=== PATIENT | male | born 1955 | race Caucasian/White ===

== ENCOUNTER 2018-03-21 07:57 | Inpatient (IN) | payer OTHER ==
[2018-03-21] MEDS ORDERED: SODIUM CHLORIDE 0.9% 1,000 ML IV STA ×2 (08:28→11:42)
[2018-03-21] MEDS ORDERED: METOPROLOL TARTRATE 5 MG/5 ML VIAL IVP STA (08:28)
--- NOTE | 2018-03-21 08:31 | ED ---
Arrhythmia/Palpitations HPI - General Chief Complaint: Arrhythmia/Palpitations Stated Complaint: high heart rate Time Seen by Provider: 03/21/18 08:07 Source: patient, RN notes reviewed Mode of arrival: ambulatory Limitations: no limitations - History of Present Illness Initial Comments: This is a [id number] male who states he was sent over by his information broker for evaluation. He has history of hypertension. He had a stress test last week. He states he had a elevated heart rate for about a month now. He denies any chest pain shortness breath fevers chills sweats or other symptoms at this time. He states he just does not feel like his usual self. He has no prior history of irregular heartbeat or heart attack he doesn't the family history of heart disease. He denies any thyroid disease. No weight loss weight and recently no heat or cold intolerance. - Related Data Home Medications Medication Instructions Recorded Confirmed Albuterol Sulfate [Proair Hfa] 2 puff INHALATION RT-Q4H PRN 03/21/18 03/21/18 Amoxic-Pot Clav 875-125Mg 1 tab PO BID 03/21/18 03/21/18 [Augmentin 875-125] Apixaban [Eliquis] 5 mg PO BID 03/21/18 03/21/18 Budesonide/Formoterol Fumarate 2 puff INHALATION RT-BID 03/21/18 03/21/18 [Symbicort 80-4.5 Mcg Inhaler] Cetirizine HCl [Zyrtec] 10 mg PO DAILY 03/21/18 03/21/18 Fluticasone Nasal [place] [Flonase 1 spray EA NOSTRIL DAILY 03/21/18 03/21/18 Nasal [place]] Metoprolol Succinate (ER) [Toprol 100 mg PO DAILY 03/21/18 03/21/18 Xl] amLODIPine [Norvasc] 10 mg PO DAILY 03/21/18 03/21/18 Allergies Allergy/AdvReac Type Severity Reaction Status Date / Time No Known Allergies Allergy Verified 03/21/18 10:49 Review of Systems ROS Statement: Those systems with pertinent positive or pertinent negative responses have been documented in the HPI. ROS Other: All systems not noted in ROS Statement are negative. Past Medical History Past Medical History: Hypertension History of Any Multi-Drug Resistant Organisms: None Reported Past Surgical History: Appendectomy Past Psychological History: No Psychological Hx Reported Smoking Status: Current every day smoker Past Alcohol Use History: Rare Past Drug Use History: None Reported General Exam - General Exam Comments Initial Comments: This is a well-developed well-nourished awake alert oriented times 3 male Limitations: no limitations General appearance: alert, in no apparent distress Head exam: Present: atraumatic, normocephalic, normal inspection Eye exam: Present: normal appearance, PERRL, EOMI. Absent: scleral icterus, conjunctival injection, periorbital swelling ENT exam: Present: normal exam, mucous membranes moist Neck exam: Present: normal inspection, full ROM, other (No stridor JVD or bruits ). Absent: tenderness, meningismus, lymphadenopathy Respiratory exam: Present: normal lung sounds bilaterally. Absent: respiratory distress, wheezes, rales, rhonchi, stridor Cardiovascular Exam: Present: normal rhythm, tachycardia, normal heart sounds. Absent: systolic murmur, diastolic murmur, rubs, gallop, clicks GI/Abdominal exam: Present: soft, normal bowel sounds. Absent: distended, tenderness, guarding, rebound, rigid Extremities exam: Present: normal inspection, full ROM, normal capillary refill. Absent: tenderness, pedal edema, joint swelling, calf tenderness Back exam: Present: normal inspection Neurological exam: Present: alert, oriented X3, CN II-XII intact Psychiatric exam: Present: normal affect, normal mood Skin exam: Present: warm, dry, intact, normal color. Absent: rash Course Vital Signs 03/21/18 03/21/18 03/21/18 07:58 08:11 08:20 Temperature 98.2 F Pulse Rate 136 H 135 H 135 H Respiratory 18 10 L 30 H Rate Blood Pressure 132/96 135/101 O2 Sat by Pulse 96 97 Oximetry 03/21/18 03/21/18 03/21/18 08:40 09:00 09:20 Temperature Pulse Rate 135 H 137 H Respiratory 27 H 18 Rate Blood Pressure 126/82 125/92 114/94 O2 Sat by Pulse 96 96 Oximetry 03/21/18 09:40 Temperature Pulse Rate 135 H Respiratory 18 Rate Blood Pressure 107/77 O2 Sat by Pulse 96 Oximetry - Reevaluation(s) Reevaluation #1: 03/21/18 12:10 Patient was given IV beta mildred with no change in the rate there. He did develop hypotension however. He was given IV fluids. Reevaluation #2: 03/21/18 12:10 IV Cardizem will be started on the patient EKG Findings - EKG Results: EKG: interpreted by ORAL (Atrial flutter with 21 AV conduction rate was 136 QRS 102 QT since QTC 378/568 nonspecific inferior changes) Medical Decision Making - Medical Decision Making I did discuss findings the patient's family member. Patient be admitted with cardiology consultation. I did discuss case with Dr. Bradley - Lab Data Result diagrams: 03/21/18 08:20 03/21/18 08:20 Lab Results 03/21/18 03/21/18 03/21/18 Range/Units 08:20 08:20 08:20 WBC 9.8 (3.8-10.6) k/uL RBC 5.18 (4.30-5.90) m/uL Hgb 16.1 (13.0-17.5) gm/dL Hct 48.6 (39.0-53.0) % MCV 93.8 (80.0-100.0) fL MCH 31.1 (25.0-35.0) pg MCHC 33.2 (31.0-37.0) g/dL RDW 13.8 (11.5-15.5) % Plt Count 258 (150-450) k/uL Neutrophils % 79 % Lymphocytes % 12 % Monocytes % 5 % Eosinophils % 2 % Basophils % 0 % Neutrophils # 7.7 (1.3-7.7) k/uL Lymphocytes # 1.2 (1.0-4.8) k/uL Monocytes # 0.5 (0-1.0) k/uL Eosinophils # 0.2 (0-0.7) k/uL Basophils # 0.0 (0-0.2) k/uL PT (9.0-12.0) sec INR (<1.2) APTT (22.0-30.0) sec D-Dimer (<0.60) mg/L FEU Sodium 143 (137-145) mmol/L Potassium 4.7 (3.5-5.1) mmol/L Chloride 109 H (98-107) mmol/L Carbon Dioxide 26 (22-30) mmol/L Anion Gap 8 mmol/L BUN 10 (9-20) mg/dL Creatinine 1.23 (0.66-1.25) mg/dL Est GFR (CKD-EPI)AfAm 74 (>60 ml/min/1.73 sqM) Est GFR (CKD-EPI)NonAf 64 (>60 ml/min/1.73 sqM) Glucose 109 H (74-99) mg/dL Calcium 9.7 (8.4-10.2) mg/dL Magnesium 2.0 (1.6-2.3) mg/dL Total Bilirubin 1.4 H (0.2-1.3) mg/dL AST 44 (17-59) U/L ALT 86 H (21-72) U/L Alkaline Phosphatase 114 (38-126) U/L Total Creatine Kinase 41 L (55-170) U/L CK-MB (CK-2) 0.4 (0.0-2.4) ng/mL CK-MB (CK-2) Rel Index 1.0 Troponin I <0.012 (0.000-0.034) ng/mL Total Protein 7.5 (6.3-8.2) g/dL Albumin 4.4 (3.5-5.0) g/dL TSH 2.260 (0.465-4.680) mIU/L 03/21/18 Range/Units 08:20 WBC (3.8-10.6) k/uL RBC (4.30-5.90) m/uL Hgb (13.0-17.5) gm/dL Hct (39.0-53.0) % MCV (80.0-100.0) fL MCH (25.0-35.0) pg MCHC (31.0-37.0) g/dL RDW (11.5-15.5) % Plt Count (150-450) k/uL Neutrophils % % Lymphocytes % % Monocytes % % Eosinophils % % Basophils % % Neutrophils # (1.3-7.7) k/uL Lymphocytes # (1.0-4.8) k/uL Monocytes # (0-1.0) k/uL Eosinophils # (0-0.7) k/uL Basophils # (0-0.2) k/uL PT 11.4 (9.0-12.0) sec INR 1.1 (<1.2) APTT 27.3 (22.0-30.0) sec D-Dimer 0.35 (<0.60) mg/L FEU Sodium (137-145) mmol/L Potassium (3.5-5.1) mmol/L Chloride (98-107) mmol/L Carbon Dioxide (22-30) mmol/L Anion Gap mmol/L BUN (9-20) mg/dL Creatinine (0.66-1.25) mg/dL Est GFR (CKD-EPI)AfAm (>60 ml/min/1.73 sqM) Est GFR (CKD-EPI)NonAf (>60 ml/min/1.73 sqM) Glucose (74-99) mg/dL Calcium (8.4-10.2) mg/dL Magnesium (1.6-2.3) mg/dL Total Bilirubin (0.2-1.3) mg/dL AST (17-59) U/L ALT (21-72) U/L Alkaline Phosphatase (38-126) U/L Total Creatine Kinase (55-170) U/L CK-MB (CK-2) (0.0-2.4) ng/mL CK-MB (CK-2) Rel Index Troponin I (0.000-0.034) ng/mL Total Protein (6.3-8.2) g/dL Albumin (3.5-5.0) g/dL TSH (0.465-4.680) mIU/L - Radiology Data Radiology results: report reviewed (Imaging was reviewed no acute findings.), image reviewed Critical Care Time Critical Care Time: Yes Critical Care Time: 32 minutes of critical care time which includes initial presentation with history physical labs x-rays several reevaluation patient responsive therapy discussion with the patient family members on several occasions discussion with the admitting physician admission orders and documentation of the above. Review of old charting from the information broker's office. Disposition Clinical Impression: Atrial flutter, Tachycardia, Dehydration, Hypotensive episode Disposition: ADMITTED IP TO THIS HOSP Condition: Stable Referrals: None,Stated [REFERRING] - 1-2 days
[2018-03-21 08:47] LABS: Basophils % (A) 0 %; Eosinophils # (A) 0.2 k/uL (0-0.7); Eosinophils % (A) 2 %; HCT 48.6 % (39.0-53.0); HGB 16.1 gm/dL (13.0-17.5); Lymphocytes # (A) 1.2 k/uL (1.0-4.8); Lymphocytes % (A) 12 %; MCH 31.1 pg (25.0-35.0); MCHC 33.2 g/dL (31.0-37.0); MCV 93.8 fL (80.0-100.0); Monocytes # (A) 0.5 k/uL (0-1.0); Monocytes % (A) 5 %; Neutrophils # (A) 7.7 k/uL (1.3-7.7); Neutrophils % (A) 79 %; Platelet Count 258 k/uL (150-450); RBC 5.18 m/uL (4.30-5.90); RDW 13.8 % (11.5-15.5); WBC 9.8 k/uL (3.8-10.6)
[2018-03-21 08:50] LABS: Albumin 4.4 g/dL (3.5-5.0); Calcium 9.7 mg/dL (8.4-10.2); Potassium 4.7 mmol/L (3.5-5.1); Total Bilirubin 1.4 mg/dL (0.2-1.3); Total Protein 7.5 g/dL (6.3-8.2)
[2018-03-21 09:04] LABS: Creatine Kinase 41 U/L (55-170); D-Dimer 0.35 mg/L FEU (<0.60); INR 1.1 (<1.2); Partial Thromboplastin Time 27.3 sec (22.0-30.0); Prothrombin Time 11.4 sec (9.0-12.0)
--- NOTE | 2018-03-21 09:15 | XR ---
EXAMINATION TYPE: XR chest 2V DATE OF EXAM: 03/21/2018 COMPARISON: NONE HISTORY: Dysrhythmia, irregular heart rate. TECHNIQUE: Frontal and lateral views of the chest are obtained. FINDINGS: Overlying EKG leads are seen. The cardiac silhouette size is mildly enlarged . There is m ild central vascular congestion. No pleural effusion or pneumothorax is seen. No suspicious focal air space opacity is noted. The osseous structures are intact. IMPRESSION: Correlate for CHF exacerbation as there is mild cardiomegaly with suspected mild central vascular congestion.
[2018-03-21 09:16] LABS: Creatine Kinase MB 0.4 ng/mL (0.0-2.4); Troponin I <0.012 ng/mL (0.000-0.034)
[2018-03-21] MEDS ORDERED: DILTIAZEM 50 MG in SODIUM CHLORIDE 0.9% 40 ML IV SCH (11:30)
[2018-03-21] MEDS: SODIUM CHLORIDE 0.9% 1,000 ML IV SCH ×2 (12:00→20:17)
[2018-03-21] MEDS ORDERED: NALOXONE 0.4 MG/ML 1 ML VIAL IV PRN (12:15)
[2018-03-21] MEDS ORDERED: HEPARIN SODIUM,PORCINE 5,000 UNIT/ML 1 ML VIAL IV PRN (12:22)
[2018-03-21] MEDS ORDERED: ALBUTEROL NEBULIZED 2.5 MG/3 ML INHALATION PRN (12:22)
[2018-03-21] MEDS ORDERED: HEPARIN SOD,PORK IN 0.45% NACL 25,000 UNIT in 0.45% NACL 1 250ML.BAG IV SCH (12:30)
[2018-03-21] MEDS ORDERED: SODIUM CHLORIDE 0.9% 500 ML 500 ML IV STA (13:58)
[2018-03-21] MEDS ORDERED: SODIUM CHLORIDE 0.9% 1,000 ML IV ONE (14:31)
--- NOTE | 2018-03-21 15:14 | P.HPIM ---
History of Present Illness H&P Date: 03/21/18 The patient is a 62 yo M with a PMH of HTN, COPD, active smoker, and recently diagnosed A-flutter (on Eliquis) was sent to the ED by his Professor Of Criminal Justice for tachycardia. The patient notes that since his diagnosis of A-flutter 6 weeks ago , his heart rate has persistently been in the 130s-140s (he checks it multiple times at home). He denied palpitations but notes that he feels easily fatigued and his ET is significantly reduced. He has been following with Dr Mitchell ( Professor Of Criminal Justice), referred to by his PCP. As per the patient, he had a stress test last week which was unremarkable. He otherwise denied chest pain, SOB, nausea, vomiting, diaphoresis, dizziness, fever, chills, or weight loss. He also denied a family history of heart disease. The patient had a comprehensive w/u in the ED. CXR revealed mild cardiomegaly, Troponin < 0.02, and D-dimer negative. WBC 9.8, Hgb 16.1, with Cr 1.23. He received Lopressor 5 mg IVP with no improvement. He was started on a Cardizem infusion and admitted under Medicine for further management. Review of Systems Pertinent positives and negatives as discussed in HPI, a complete review of systems was performed and all other systems are negative. Past Medical History Past Medical History: Hypertension Additional Past Medical History / Comment(s): Elevated heart rate past month, SOB at times, recent diarrhea but thinks d/t new medications, occasional L knee pain. History of Any Multi-Drug Resistant Organisms: None Reported Past Surgical History: Appendectomy, Tonsillectomy Past Anesthesia/Blood Transfusion Reactions: No Reported Reaction Smoking Status: Current every day smoker - Past Family History Father Family Medical History: Myocardial Infarction (AR) Additional Family Medical History / Comment(s): Father of a AR at the age of 53 yrs. Mother Family Medical History: Myocardial Infarction (AR) Additional Family Medical History / Comment(s): Mother of a AR at the age of 78yrs. She had had a previous AR as well, pt cannot recall at what age. Medications and Allergies Home Medications Medication Instructions Recorded Confirmed Type Albuterol Sulfate [Proair Hfa] 2 puff INHALATION RT-Q4H PRN 03/21/18 03/21/18 History Amoxic-Pot Clav 875-125Mg 1 tab PO BID 03/21/18 03/21/18 History [Augmentin 875-125] Apixaban [Eliquis] 5 mg PO BID 03/21/18 03/21/18 History Budesonide/Formoterol Fumarate 2 puff INHALATION RT-BID 03/21/18 03/21/18 History [Symbicort 80-4.5 Mcg Inhaler] Cetirizine HCl [Zyrtec] 10 mg PO DAILY 03/21/18 03/21/18 History Fluticasone Nasal [place] [Flonase 1 spray EA NOSTRIL DAILY 03/21/18 03/21/18 History Nasal [place]] Metoprolol Succinate (ER) [Toprol 100 mg PO DAILY 03/21/18 03/21/18 History Xl] amLODIPine [Norvasc] 10 mg PO DAILY 03/21/18 03/21/18 History Allergies Allergy/AdvReac Type Severity Reaction Status Date / Time No Known Allergies Allergy Verified 03/21/18 10:49 Physical Exam Vitals: Vital Signs Temp Pulse Resp BP Pulse Ox 03/21/18 14:33 134 H 18 114/97 99 03/21/18 14:30 134 H 15 104/82 99 03/21/18 14:00 133 H 12 102/81 99 03/21/18 13:30 133 H 24 99/78 03/21/18 13:00 133 H 27 H 98/81 98 03/21/18 12:30 135 H 25 H 96/85 99 03/21/18 12:00 133 H 11 L 97/77 100 03/21/18 11:30 133 H 6 L 101/79 96 03/21/18 11:00 134 H 16 107/93 96 03/21/18 10:30 134 H 27 H 118/81 97 03/21/18 09:40 135 H 18 107/77 96 03/21/18 09:20 137 H 18 114/94 96 03/21/18 09:00 125/92 03/21/18 08:40 135 H 27 H 126/82 96 03/21/18 08:20 135 H 30 H 135/101 97 03/21/18 08:11 135 H 10 L 03/21/18 07:58 98.2 F 136 H 18 132/96 96 Intake and Output 03/20/18 03/21/18 03/21/18 22:59 06:59 14:59 Other: Weight 146.828 kg General: [non toxic], [no distress], [appears at stated age], [obese] Derm: [no unusual rashes/lesions] [no unusual ecchymoses], [warm], [dry] Head: [atraumatic], [normocephalic], [symmetric] Eyes: [EOMI], [no lid lag], [anicteric sclera], [pupils equal round reactive to light] ENT: [Nose and ears atraumatic], [no thrush], [no pharyngeal erythema] Neck: [No thyromegaly], [no cervical lymphadenopathy], [trachea midline], [ supple] Mouth: [no lip lesion], [mucus membranes moist] Cardiovascular: [S1S2 reg], tachycardic, [no murmur], [positive posterior tibial pulse bilateral], [no edema], [capillary refill less than 2 seconds] Lungs: [CTA bilateral], [no rhonchi, no rales] , [no accessory muscle use] Abdominal: [soft], [ nontender to palpation], [no guarding], [no appreciable organomegaly], [normal bowel sounds] Ext: [no gross muscle atrophy], [muscle strength 5 out of 5 in all 4 extremities grossly], [no contractures], Neuro: [ CN II-XI grossly intact], [light touch intact all 4 extremities], [ finger to nose within normal limits], Psych: [Alert], [oriented], [appropriate affect] Results CBC & Chem 7: 03/21/18 08:20 03/21/18 08:20 Labs: Abnormal Lab Results - Last 24 Hours (Table) 03/21/18 03/21/18 Range/Units 08:20 08:20 Chloride 109 H (98-107) mmol/L Glucose 109 H (74-99) mg/dL Total Bilirubin 1.4 H (0.2-1.3) mg/dL ALT 86 H (21-72) U/L Total Creatine Kinase 41 L (55-170) U/L Thrombosis Risk Factor Assmnt - Choose All That Apply Any of the Below Risk Factors Present?: Yes Each Factor Represents 1 point: Age 41-60 years, Obesity (BMI >25) Other Risk Factors: No Other congenital or acquired thrombophilia - If yes, enter type in comment: No Thrombosis Risk Factor Assessment Total Risk Factor Score: 2 Thrombosis Risk Factor Assessment Level: Low Risk Assessment and Plan Plan: A-flutter with RVR (2:1 conduction) -C/w Cardizem infusion. Will start Cardizem PO 30 mg TID. C/w Toprol 100 mg po qd (home med). -Cardiology consult -Telemetry monitoring -C/w Eliquis home med COPD -C/w home meds Albuterol and Symbicort Active tobacco abuse -Advised on cessation HTN -C/w home med: Norvasc, Toprol DVT//GI prophylaxis -Eliquis -No indication for GI prophy. The patient is admitted with an anticipated greater than than 2 midnight stay for evaluation of a flutter with RVR. CODE STATUS: Full code Discussed with: Patient Anticipated discharge date: 03/23/[address]: Home A total of 60 minutes was spent on the care of this complex patient more than 50 % of the time was spent in counseling and care coordination.
[2018-03-21] MEDS: APIXABAN 5 MG TAB PO SCH (20:08)
[2018-03-21] MEDS: DILTIAZEM ORAL 30 MG TAB PO SCH ×2 (20:08)
[2018-03-21] MEDS ORDERED: APIXABAN 5 MG TAB PO SCH (21:00)
[2018-03-21] MEDS: SYMBICORT 80-4.5 MCG INHALER INHALATION SCH (22:35)
[2018-03-21] MEDS: METOPROLOL SUCCINATE (ER) 100 MG TAB.ER.24H PO SCH (22:53)
[2018-03-22] MEDS ORDERED: NAPROXEN 250 MG TAB PO STA (01:42)
[2018-03-22 06:16] LABS: Basophils % (A) 1 %; Eosinophils # (A) 0.2 k/uL (0-0.7); Eosinophils % (A) 3 %; HCT 44.1 % (39.0-53.0); HGB 14.5 gm/dL (13.0-17.5); Lymphocytes # (A) 1.2 k/uL (1.0-4.8); Lymphocytes % (A) 16 %; MCH 31.2 pg (25.0-35.0); MCHC 32.8 g/dL (31.0-37.0); MCV 95.2 fL (80.0-100.0); Mean Platelet Volume 7.3; Monocytes # (A) 0.4 k/uL (0-1.0); Monocytes % (A) 5 %; Neutrophils # (A) 5.5 k/uL (1.3-7.7); Neutrophils % (A) 74 %; Platelet Count 226 k/uL (150-450); RBC 4.64 m/uL (4.30-5.90); WBC 7.4 k/uL (3.8-10.6)
[2018-03-22] MEDS ORDERED: DILTIAZEM 50 MG in SODIUM CHLORIDE 0.9% 40 ML IV SCH (06:45)
--- NOTE | 2018-03-22 06:54 | P.CRDCN ---
History of Present Illness Consult date: 03/22/18 Chief complaint: Not feeling well History of present illness: This is a pleasant 62-year-old gentleman who sees Dr. Mitchell in the office as an outpatient with a past medical history significant for hypertension as well as history of paroxysmal atrial fibrillation presented to the emergency room not feeling well. The patient denies having any symptoms of chest pain or chest discomfort, shortness of breath, dizziness or lightheadedness, or feeling of heart racing or fluttering. Overall he stated that he has not been feeding well and he has been feeling tired and fatigued. Denies having any fever or chills. No cough. No nausea or vomiting. The EKG showed atrial flutter with RVR. The atrial flutter seems to be typical with 2 to one block. The chest x-ray showed findings consistent with mild congestive heart failure exacerbation. There is no PND. The patient was admitted to the hospital and initially was started on Cardizem IV but that was stopped and subsequently started on Cardizem by mouth as well as metoprolol. He continues to be tachycardic with a resting heart rate around 130 bpm. I am going to DC the Cardizem by mouth and start the patient on Cardizem IV. Resume his metoprolol by mouth. Resume his oral anticoagulation. I do feel that the patient will benefit from a cardioversion later on today. Past Medical History Past Medical History: Hypertension Additional Past Medical History / Comment(s): Elevated heart rate past month, SOB at times, recent diarrhea but thinks d/t new medications, occasional L knee pain. History of Any Multi-Drug Resistant Organisms: None Reported Past Surgical History: Appendectomy, Tonsillectomy Past Anesthesia/Blood Transfusion Reactions: No Reported Reaction Smoking Status: Current every day smoker - Past Family History Father Family Medical History: Myocardial Infarction (ME) Additional Family Medical History / Comment(s): Father of a ME at the age of 53 yrs. Mother Family Medical History: Myocardial Infarction (ME) Additional Family Medical History / Comment(s): Mother of a ME at the age of 78yrs. She had had a previous ME as well, pt cannot recall at what age. Medications and Allergies Home Medications Medication Instructions Recorded Confirmed Type Albuterol Sulfate [Proair Hfa] 2 puff INHALATION RT-Q4H PRN 03/21/18 03/21/18 History Amoxic-Pot Clav 875-125Mg 1 tab PO BID 03/21/18 03/21/18 History [Augmentin 875-125] Apixaban [Eliquis] 5 mg PO BID 03/21/18 03/21/18 History Budesonide/Formoterol Fumarate 2 puff INHALATION RT-BID 03/21/18 03/21/18 History [Symbicort 80-4.5 Mcg Inhaler] Cetirizine HCl [Zyrtec] 10 mg PO DAILY 03/21/18 03/21/18 History Diltiazem Oral [Cardizem] 30 mg PO TID 03/21/18 03/21/18 History Fluticasone Nasal [place] [Flonase 1 spray EA NOSTRIL DAILY 03/21/18 03/21/18 History Nasal [place]] Metoprolol Succinate (ER) [Toprol 100 mg PO DAILY 03/21/18 03/21/18 History Xl] amLODIPine [Norvasc] 10 mg PO DAILY 03/21/18 03/21/18 History Allergies Allergy/AdvReac Type Severity Reaction Status Date / Time No Known Allergies Allergy Verified 03/21/18 10:49 Physical Exam Vitals: Vital Signs Temp Pulse Pulse Resp BP BP Pulse Ox 03/22/18 04:00 97.5 F L 132 H 16 119/80 96 03/21/18 23:52 97.1 F L 136 H 15 104/70 96 03/21/18 20:00 98.3 F 133 H 17 121/87 97 03/21/18 19:47 92 L 03/21/18 18:38 133 H 16 03/21/18 18:33 98.2 F 133 H 16 121/81 97 03/21/18 18:00 134 H 23 119/105 97 03/21/18 17:30 134 H 23 119/105 97 03/21/18 17:00 134 H 22 79/63 97 03/21/18 16:30 133 H 8 L 110/77 97 03/21/18 16:00 134 H 20 108/88 03/21/18 15:30 134 H 18 113/95 97 03/21/18 15:00 134 H 24 114/97 03/21/18 14:33 134 H 18 114/97 99 03/21/18 14:30 134 H 15 104/82 99 03/21/18 14:00 133 H 12 102/81 99 03/21/18 13:30 133 H 24 99/78 03/21/18 13:00 133 H 27 H 98/81 98 03/21/18 12:30 135 H 25 H 96/85 99 03/21/18 12:00 133 H 11 L 97/77 100 03/21/18 11:30 133 H 6 L 101/79 96 03/21/18 11:00 134 H 16 107/93 96 03/21/18 10:30 134 H 27 H 118/81 97 03/21/18 09:40 135 H 18 107/77 96 03/21/18 09:20 137 H 18 114/94 96 03/21/18 09:00 125/92 03/21/18 08:40 135 H 27 H 126/82 96 03/21/18 08:20 135 H 30 H 135/101 97 03/21/18 08:11 135 H 10 L 03/21/18 07:58 98.2 F 136 H 18 132/96 96 Intake and Output 03/21/18 03/21/18 03/22/18 14:59 22:59 06:59 Intake Total 1280 Balance 1280 Intake: Intake, IV Titration 800 Amount Sodium Chloride 0.9% 1, 800 000 ml @ 999 mls/hr IV . Q1H1M ONE Rx#:[id number] Oral 480 Other: Voiding Method Toilet Toilet # Voids 2 1 Weight 146.828 kg 146.4 kg - Constitutional General appearance: no acute distress - Respiratory Respiratory: bilateral: CTA - Cardiovascular Rhythm: irregularly irregular Heart sounds: normal: S1, S2 Results 03/22/18 05:20 03/21/18 08:20 Cardiac Enzymes 03/21/18 03/21/18 Range/Units 08:20 08:20 AST 44 (17-59) U/L CK-MB (CK-2) 0.4 (0.0-2.4) ng/mL Troponin I <0.012 (0.000-0.034) ng/mL Coagulation 03/21/18 Range/Units 08:20 PT 11.4 (9.0-12.0) sec APTT 27.3 (22.0-30.0) sec CBC 03/21/18 03/22/18 Range/Units 08:20 05:20 WBC 9.8 7.4 (3.8-10.6) k/uL RBC 5.18 4.64 (4.30-5.90) m/uL Hgb 16.1 14.5 (13.0-17.5) gm/dL Hct 48.6 44.1 (39.0-53.0) % Plt Count 258 226 (150-450) k/uL Comprehensive Metabolic Panel 03/21/18 Range/Units 08:20 Sodium 143 (137-145) mmol/L Potassium 4.7 (3.5-5.1) mmol/L Chloride 109 H (98-107) mmol/L Carbon Dioxide 26 (22-30) mmol/L BUN 10 (9-20) mg/dL Creatinine 1.23 (0.66-1.25) mg/dL Glucose 109 H (74-99) mg/dL Calcium 9.7 (8.4-10.2) mg/dL AST 44 (17-59) U/L ALT 86 H (21-72) U/L Alkaline Phosphatase 114 (38-126) U/L Total Protein 7.5 (6.3-8.2) g/dL Albumin 4.4 (3.5-5.0) g/dL Current Medications Generic Name Dose Route Start Last Admin Trade Name Freq PRN Reason Stop Dose Admin Albuterol Sulfate 2.5 mg 03/21/18 12:22 Ventolin Nebulized INHALATION RT-Q4H PRN Shortness Of Breath Apixaban 5 mg 03/21/18 21:00 03/21/18 20:08 Eliquis PO 5 mg BID [place] Administration Budesonide/Formoterol Fumarate 2 puff 03/21/18 20:00 03/21/18 22:35 Symbicort 80-4.5 Mcg Inhaler INHALATION Not Given RT-BID [place] Diltiazem HCl 30 mg 03/21/18 16:00 03/21/18 20:08 Cardizem Oral PO 30 mg TID [place] Administration Fluticasone Propionate 1 spray 03/22/18 09:00 Flonase Nasal [place] EA NOSTRIL DAILY [place] Sodium Chloride 1,000 mls @ 100 mls/hr 03/21/18 12:15 03/21/18 20:17 Saline 0.9% IV 100 mls/hr .Q10H [place] Administration Loratadine 10 mg 03/22/18 09:00 Claritin PO DAILY [place] Metoprolol Succinate 100 mg 03/21/18 22:45 03/21/18 22:53 Toprol Xl PO 100 mg BID [place] Administration Naloxone HCl 0.2 mg 03/21/18 12:15 Narcan IV Q2M PRN Opioid Reversal Intake and Output 03/21/18 03/21/18 03/22/18 14:59 22:59 06:59 Intake Total 1280 Balance 1280 Intake: Intake, IV Titration 800 Amount Sodium Chloride 0.9% 1, 800 000 ml @ 999 mls/hr IV . Q1H1M ONE Rx#:[id number] Oral 480 Other: Voiding Method Toilet Toilet # Voids 2 1 Weight 146.828 kg 146.4 kg Patient Weight 03/22/18 06:59 Weight 146.4 kg 03/22/18 05:20 03/21/18 08:20 Assessment and Plan Assessment: Assessment #1 atrial flutter with RVR #2 hypertension #3 obesity Plan #1 continue oral anticoagulation #2 start Cardizem IV and DC Cardizem by mouth #3 continue metoprolol by mouth #4 the patient will benefit from cardioversion Thank you for allowing us participate in his care and we'll continue following up with him
[2018-03-22] MEDS: SYMBICORT 80-4.5 MCG INHALER INHALATION SCH (08:26)
[2018-03-22] MEDS: APIXABAN 5 MG TAB PO SCH (08:32)
[2018-03-22] MEDS: METOPROLOL SUCCINATE (ER) 100 MG TAB.ER.24H PO SCH (08:32)
[2018-03-22] MEDS: SODIUM CHLORIDE 0.9% 1,000 ML IV SCH (08:35)
[2018-03-22] MEDS ORDERED: SODIUM CHLORIDE 0.9% 1,000 ML IV SCH (08:45)
[2018-03-22] MEDS ORDERED: FLUTICASONE 50MCG/SPRAY NASAL 16GM EA NOSTRIL SCH (09:00)
[2018-03-22] MEDS ORDERED: amLODIPine 10 MG TAB PO SCH (09:00)
[2018-03-22] MEDS ORDERED: LORATADINE 10 MG TAB PO SCH (09:00)
[2018-03-22] MEDS ORDERED: METOPROLOL SUCCINATE (ER) 100 MG TAB.ER.24H PO SCH (09:00)
[2018-03-22] MEDS ORDERED: PROPOFOL 10 MG/ML 20 ML VIAL IV ONE (09:48)
[2018-03-22] MEDS ORDERED: SODIUM CHLORIDE 0.9% 1,000 ML IV ONE (09:48)
[2018-03-22 09:53] VITALS: BMI 39.2
[2018-03-22 10:17] VITALS: RESP 16
--- NOTE | 2018-03-22 10:25 | CE ---
CARDIAC ELECTROPHYSIOLOGY REPORT DATE OF SERVICE: March 21, 2018 PERFORMING PHYSICIAN: Greg Rick MD. PROCEDURE PERFORMED: Cardioversion of atrial flutter into atrial fibrillation. INDICATION: This is a pleasant 62-year-old gentleman with known history of atrial flutter, who sees Dr. Mitchell on a regular basis, presented to the hospital because he was not feeling well and was feeling tired and fatigued. His heart rate was out of control in spite of giving him Cardizem IV. He was on oral anticoagulation with Eliquis. Dr. Mitchell was out of the town and I am doing the cardioversion for him. COMPLICATION: None. LEVEL OF SEDATION: Deep with propofol was used with [employer] in the room. PROCEDURE DESCRIPTION: After induction general anesthesia with propofol, the patient cardioverted from atrial flutter to normal sinus mechanism using 200 joules on first attempt. CONCLUSION: Successful cardioversion of atrial flutter to normal sinus mechanism using 200 joules on first attempt. MMODL / IJN: [id number] /
[2018-03-22 11:18] VITALS: BP 142/88; PULSE 73; TEMP 98.1
--- NOTE | 2018-03-22 15:28 | P.DS ---
Providers Date of admission: 03/21/18 12:15 Expected date of discharge: 03/22/18 Attending physician: Sadaf Garcia MD Consults: 03/21/18 12:19 Consult Physician Urgent Consulting Provider: Jared Mitchell Consult Reason/Comments: Atrial flutter Do you want consulting provider notified?: Yes Primary care physician: [facility] Course: The patient is a 62 yo M with a PMH of HTN, COPD, active smoker, and recently diagnosed A-flutter (on Eliquis) was sent to the ED by his Yeast Tender for tachycardia. The patient notes that since his diagnosis of A-flutter 6 weeks ago , his heart rate has persistently been in the 130s-140s (he checks it multiple times at home). He c/o feeling fatigued and not like himself. In the ED, the patient was noted to be in atrial flutter with RVR with a rate of 133-134. He received Lopressor 5 mg IVP with no improvement. He was started on a Cardizem infusion and admitted under Medicine for further management. Cardiology was consulted and recommended cardioversion. The patient had a successful cardioversion of the flutter to normal sinus with 200 J on first attempt. He subsequently remained in sinus rhythm. He is presently asymptomatic and ready for discharge home. Physical Examination General: Non-toxic, in no acute distress, appears stated age, normal weight HEENT: NC/AT, anicteric sclerae, moist conjunctiva, no lid-lag, PERRLA Cardiovascular: S1/S2 wnl, no murmurs, rubs, or gallops Lungs: Clear to auscultation, normal respiratory effort, no accessory muscle use Abdominal: Soft, non-tender, non-distended, no guarding, rebound, or rigidity Skin: Warm, dry Extremities: No edema or contractures Psychiatric: Alert and oriented to person, place and time, appropriate affect Neuro: CN II-XII grossly intact, Strength 5/5 in all 4 extremities, Speech intact, Sensation to light touch grossly intact throughout Discharge diagnosis: A flutter with RVR status post cardioversion; COPD; active tobacco abuse; hypertension A total of 50 minutes of time were spent preparing this complex discharge summary. Pertinent Studies: As per HPI Procedures: As per HPI Patient Condition at Discharge: Stable Plan - Discharge Summary Discharge Rx Participant: No New Discharge Prescriptions: Continue Cetirizine HCl [Zyrtec] 10 mg PO DAILY Apixaban [Eliquis] 5 mg PO BID Budesonide/Formoterol Fumarate [Symbicort 80-4.5 Mcg Inhaler] 2 puff INHALATION RT-BID amLODIPine [Norvasc] 10 mg PO DAILY Fluticasone Nasal [place] [Flonase Nasal [place]] 1 spray EA NOSTRIL DAILY Albuterol Sulfate [Proair Hfa] 2 puff INHALATION RT-Q4H PRN PRN Reason: Shortness Of Breath Changed Metoprolol Succinate (ER) [Toprol XL] 100 mg PO BID #60 tab.er.24h Discontinued Amoxic-Pot Clav 875-125Mg [Augmentin 875-125] 1 tab PO BID Diltiazem Oral [Cardizem] 30 mg PO TID Discharge Medication List Albuterol Sulfate [Proair Hfa] 2 puff INHALATION RT-Q4H PRN 03/21/18 [History] Apixaban [Eliquis] 5 mg PO BID 03/21/18 [History] Budesonide/Formoterol Fumarate [Symbicort 80-4.5 Mcg Inhaler] 2 puff INHALATION RT-BID 03/21/18 [History] Cetirizine HCl [Zyrtec] 10 mg PO DAILY 03/21/18 [History] Fluticasone Nasal [place] [Flonase Nasal [place]] 1 spray EA NOSTRIL DAILY 03/21/18 [History] amLODIPine [Norvasc] 10 mg PO DAILY 03/21/18 [History] Metoprolol Succinate (ER) [Toprol XL] 100 mg PO BID #60 tab.er.24h 03/22/18 [Rx] Follow up Appointment(s)/Referral(s): Greg Rick MD [STAFF PHYSICIAN] - 1 Week Arnulfo Hammonds MD [Primary Care Provider] - 03/27/18 9:30 am (Tuesday) Patient Instructions/Handouts: Atrial Flutter (DC) Discharge Disposition: HOME SELF-CARE
== END 2018-03-22 17:03 | disposition home or self-care (01) | DRG 310 ==
LOC: EC 07:57 → 3SCARD 12:15
PROVIDERS: ADMIT Internal Medicine; ATTEND Internal Medicine
PROC: 5A2204Z Restoration of Cardiac Rhythm, Single (ICD-10-PCS; principal; 2018-03-22 08:30)
DX: I48.92 Unspecified atrial flutter (principal); I48.0 Paroxysmal atrial fibrillation; E66.9 Obesity, unspecified; Z68.39 Body mass index [BMI] 39.0-39.9, adult; E86.0 Dehydration; Z71.6 Tobacco abuse counseling; F17.210 Nicotine dependence, cigarettes, uncomplicated; I11.0 Hypertensive heart disease with heart failure; I50.9 Heart failure, unspecified; J44.9 Chronic obstructive pulmonary disease, unspecified; Z79.01 Long term (current) use of anticoagulants; Z79.51 Long term (current) use of inhaled steroids; Z79.899 Other long term (current) drug therapy; Z82.49 Family history of ischemic heart disease and other diseases of the circulatory system
CPT/HCPCS: 36415; 71046; 80053; 82550; 82553; 83735; 84443; 84484; 85025; 85379; 85610; 85730; 92960; 93005; 94760; 96361; 96365; 96366; 96375; 99291